=== PATIENT | male | born 1995 ===

== ENCOUNTER 2017-03-19 14:12 | Emergency (ER) | payer OTHER ==
[2017-03-19 14:59] VITALS: BP 128/57
[2017-03-19] MEDS ORDERED: Ondansetron ODT TAB* 4 MG PO ONE (15:02)
--- NOTE | 2017-03-19 15:08 | ED ---
GI/ HPI - HPI Summary HPI Summary: 21 yr old male with the complaint of NVD. Onset of symptoms this morning at 7 am upon awakening. He has had muscle cramps, nausea and vomiting. No fever or chills. No abdominal pain. No other complaints. - History of Current Complaint Chief Complaint: UCGI Time Seen by Provider: 03/19/17 14:52 Stated Complaint: VOMITING,DIARRHEA Pain Intensity: 6 - Allergy/Home Medications Allergies/Adverse Reactions: Allergies Allergy/AdvReac Type Severity Reaction Status Date / Time soy Allergy Unknown Unknown Verified 03/19/17 14:51 Reaction Details PMH/Surg Hx/FS Hx/Imm Hx - Surgical History Surgery Procedure, Year, and Place: T&A Infectious Disease History: No Infectious Disease History: Denies: Traveled Outside the [place] in Last 30 Days - Social History Alcohol Use: Rare Substance Use Type: Reports: None Smoking Status (MU): Never Smoked Tobacco Review of Systems Negative: Fever, Chills Positive: Vomiting, Diarrhea, Nausea Positive: Myalgia All Other Systems Reviewed And Are Negative: Yes Physical Exam Triage Information Reviewed: Yes Vital Signs On Initial Exam: Initial Vitals Temp Pulse Resp BP Pulse Ox 99 F 71 16 128/57 97 03/19/17 14:51 03/19/17 14:51 03/19/17 14:51 03/19/17 14:51 03/19/17 14:51 Vital Signs Reviewed: Yes Appearance: Positive: Well-Appearing, No Pain Distress Skin: Positive: Warm, Skin Color Reflects Adequate Perfusion Head/Face: Positive: Normal Head/Face Inspection Eyes: Positive: EOMI ENT: Positive: Pharynx normal Neck: Positive: Supple, Nontender Respiratory/Lung Sounds: Positive: Clear to Auscultation, Breath Sounds Present Cardiovascular: Positive: RRR. Negative: Murmur Abdomen Description: Positive: Nontender Musculoskeletal: Positive: Strength/ROM Intact Neurological: Positive: Sensory/Motor Intact, Alert, Oriented to Person Place, Time, CN Intact II-III Psychiatric: Positive: Normal AVPU Assessment: Alert - Dhaval Coma Scale Best Eye Response: 4 - Spontaneous Best Motor Response: 6 - Obeys Commands Best Verbal Response: 5 - Oriented Coma Scale Total: 15 Diagnostics - Vital Signs Vital Signs Temp Pulse Resp BP Pulse Ox 03/19/17 14:51 99 F 71 16 128/57 97 - Laboratory Lab Statement: Any lab studies that have been ordered have been reviewed, and results considered in the medical decision making process. Re-Evaluation - Re-Evaluation First Eval Re-Evaluation Time: 15:55 Change: Improved Comment: On reeval patient is comfortable and not nauseated now. DC to home in improved condition. Follow up with Ortho. GIGU Course/Dx - Course Course Of Treatment: 21 yr old with NVD. Plan Zofran ODT. DC home. - Diagnoses Provider Diagnoses: Gastroenteritis Discharge - Discharge Plan Condition: Good Disposition: HOME Prescriptions: Ondansetron ODT TAB* [Zofran 4 MG Odt TAB*] 4 mg PO Q8H PRN #10 tab.odt PRN Reason: Nausea Patient Education Materials: Gastroenteritis (ED) Forms: *School Release Referrals: [facility] [Outside] Non Staff,Doctor [Primary Care Provider] -
== END 2017-03-19 15:58 | disposition home or self-care (01) ==
LOC: UCCORT 14:12
DX: J11.1 Influenza due to unidentified influenza virus with other respiratory manifestations (principal); I10 Essential (primary) hypertension; I25.10 Atherosclerotic heart disease of native coronary artery without angina pectoris
CPT/HCPCS: 99202; A9270-GY; G0463